=== PATIENT | male | born 1970 | race Caucasian/White ===

== ENCOUNTER → 2020-06-10 | Outpatient (CLI) | payer OTHER ==
[~2020-06-10] MED LIST: ACYCLOVIR 400400 MG PO; BACTRIM DS TAB1 EACH PO; BACTROBAN15 GM TP; DEXILANT60 MG PO; DOXYCYCLINE 10100 MG PO
== END ==
LOC: CAT 13:52
PROVIDERS: ATTEND Family Medicine
DX: Z13.6 Encounter for screening for cardiovascular disorders (principal); I25.10 Atherosclerotic heart disease of native coronary artery without angina pectoris; E78.00 Pure hypercholesterolemia, unspecified

== ENCOUNTER → 2021-01-03 | Outpatient (CLI) | payer OTHER | LOC: SJCVCIMAG 10:34 | PROVIDERS: ATTEND Internal Medicine Cardiovascular Disease | DX: R55 Syncope and collapse (principal); R00.1 Bradycardia, unspecified; Z82.49 Family history of ischemic heart disease and other diseases of the circulatory system ==